=== PATIENT | female | born 1950 | race Caucasian/White ===

== ENCOUNTER 2016-12-24 01:26 | Inpatient (IN) | payer MEDICARE, BC ==
[~2016-12-24] VITALS: Ht 157.5 cm; Wt 53.1 kg
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
[2016-12-24] MEDS ORDERED: TEMAZEPAM 7.5 MG CAPSULE PO PRN (02:00)
[2016-12-24] MEDS ORDERED: MAG HYDROX/AL HYDROX/SIMETH 30 ML UDC PO PRN (02:00)
[2016-12-24] MEDS ORDERED: MAGNESIUM HYDROXIDE 30 ML UDC PO PRN (02:00)
[2016-12-24 02:16] VITALS: BP 132/70
[2016-12-24] MEDS ORDERED: FAMO40TA7 (02:35)
[2016-12-24] MEDS ORDERED: LEVO5TAB13 (02:35)
[2016-12-24] MEDS ORDERED: LANS30CA56 (02:35)
[2016-12-24] MEDS ORDERED: MONT10TA22 (02:35)
[2016-12-24] MEDS ORDERED: PENT100C9 (02:35)
[2016-12-24] MEDS ORDERED: CARB200T (02:35)
[2016-12-24] MEDS ORDERED: METH4TAB16 (02:35)
[2016-12-24] MEDS ORDERED: RALO60TA14 (02:35)
[2016-12-24] MEDS ORDERED: ESZO3TAB10 (02:35)
[2016-12-24] MEDS ORDERED: ESCI20TA (02:35)
[2016-12-24] MEDS ORDERED: CARI350T27 (02:35)
[2016-12-24] MEDS ORDERED: METH5TAB16 (02:35)
[2016-12-24] MEDS ORDERED: HYDROXYZINE (02:35)
[2016-12-24] MEDS ORDERED: CALC3.8S (02:35)
[2016-12-24] MEDS ORDERED: [UNRECOGNIZED DRUG - OTHER] (02:35)
[2016-12-24] MEDS ORDERED: CLON2TAB4 (02:35)
[2016-12-24] MEDS ORDERED: GUAN1TAB (02:35)
[2016-12-24] MEDS ORDERED: DIAZ10TA4 (02:35)
[2016-12-24] MEDS ORDERED: GABA-534 (02:35)
[2016-12-24] MEDS ORDERED: BACL10TA (02:38)
[2016-12-24] MEDS ORDERED: CLON0.1T (02:38)
[2016-12-24] MEDS ORDERED: GABA400C (02:38)
[2016-12-24] MEDS ORDERED: FAMO40TA70 (02:38)
[2016-12-24] MEDS ORDERED: OXYC-164 (02:38)
[2016-12-24] MEDS ORDERED: METF500T4 (02:38)
[2016-12-24] MEDS ORDERED: CYCL30DR (02:38)
[2016-12-24] MEDS ORDERED: PSYL0.4C PO (02:40)
[2016-12-24] MEDS ORDERED: CALC-10 PO (02:50)
[2016-12-24] MEDS ORDERED: CYCL30DR EACHEYE (02:50)
[2016-12-24] MEDS ORDERED: BUTA1TAB52 PO (02:50)
[2016-12-24 02:52] VITALS: BP 132/70
--- NOTE | 2016-12-24 03:00 | NUR ---
GPS RN NOTE: PATIENT ASLEEP, ARAUSABLE TO VERBAL AND TACTILE STIMULI, NO SOB, NO ACUTE DISTRESS, BREATHING EVEN AND UNLABORED, NO S/S OF PAIN AND DISCOMFORT, WILL CONTINUE TO MONITOR [id number] FOR SAFETY
[2016-12-24] MEDS ORDERED: OXYC-128 (03:31)
--- NOTE | 2016-12-24 06:24 | NUR ---
GPS RN NOTE: PATIENT REFUSED LAB DRAW, EXPLAINED THE RISK AND BENEFITS BUT PATIENT STILL REFUSED. WILL ENDORSE TO THE NEXT SHIFT
[2016-12-24] MEDS ORDERED: ACETAMINOPHEN 325 MG TABLET ONE (06:45)
[2016-12-24] MEDS ORDERED: clonazePAM 0.5 MG TABLET ONE (06:46)
[2016-12-24] MEDS: ACETAMINOPHEN 325 MG TABLET PO PRN ×2 (06:50→18:49)
[2016-12-24] MEDS: clonazePAM 0.5 MG TABLET PO PRN ×2 (06:50→13:16)
[2016-12-24 08:00] VITALS: BP 117/67
--- NOTE | 2016-12-24 13:20 | NUR ---
PACKAGE CRIMPER-NOTES PATIENT REQUESTING KLONOPIN FOR HER ANXIETY. KLONOPIN 0.5 MG P.O GIVEN PRN ORDER. WILL CONT. MONITORING FOR SAFETY .
[2016-12-24 15:59] VITALS: BP 125/74
[2016-12-24] MEDS ORDERED: CLONIDINE HCL 0.1 MG TABLET PO PRN (16:00)
[2016-12-24] MEDS: CARBAMAZEPINE 200 MG TABLET PO SCH (16:17)
[2016-12-24] MEDS: BACLOFEN (10 MG) 10 MG TABLET PO SCH (16:17)
[2016-12-24] MEDS: ESCITALOPRAM OXALATE (10 MG) 10 MG TABLET PO SCH (16:17)
[2016-12-24] MEDS ORDERED: methylPREDNISolone (4MG) 4 MG TABLET (DAY #1) PO ONE (16:30)
[2016-12-24] MEDS: GABAPENTIN 300 MG CAPSULE PO SCH (16:42)
[2016-12-24] MEDS ORDERED: DIAZEPAM 5 MG TABLET PO ONE (17:00)
[2016-12-24] MEDS ORDERED: methylPREDNISolone (4MG) 4 MG TABLET (DAY #1, BEFORE DINNER) PO ONE (17:30)
--- NOTE | 2016-12-24 18:52 | NUR ---
TYPING BOOKKEEPER-NOTES PATIENT COMPLAINED OF HEADACHE AND REQUESTING FOR PAIN MEDICATION. TYLENOL 650MG P.O GIVEN PRN ORDER. WILL CONT. MONITORING FOR SAFETY.
[2016-12-24 19:46] VITALS: BP 145/71
[2016-12-24 19:47] VITALS: BP 145/71
[2016-12-24] MEDS: FAMOTIDINE (20 MG) 20 MG TABLET PO SCH (20:41)
[2016-12-24] MEDS ORDERED: methylPREDNISolone (4MG) 4 MG TABLET (DAY #1, HS) PO ONE (22:00)
[2016-12-24] MEDS: TEMAZEPAM 7.5 MG CAPSULE PO PRN (22:08)
[2016-12-25] MEDS: ACETAMINOPHEN 325 MG TABLET PO PRN ×2 (00:35→07:14)
[2016-12-25] MEDS: clonazePAM 0.5 MG TABLET PO PRN ×3 (02:51→13:06)
[2016-12-25] MEDS ORDERED: methylPREDNISolone (4MG) 4 MG TABLET (DAY#2 ACB) PO ONE (07:30)
[2016-12-25 08:00] VITALS: BP 114/64
[2016-12-25] MEDS ORDERED: methylPREDNISolone DOSPAK(4MG) 1 PACK TAB.DS.PK PO SCH (09:00)
[2016-12-25] MEDS: GABAPENTIN 300 MG CAPSULE PO SCH ×3 (09:21→21:10)
[2016-12-25] MEDS: MONTELUKAST SODIUM (10MG) 10 MG TABLET PO SCH (09:21)
[2016-12-25] MEDS: ESCITALOPRAM OXALATE (10 MG) 10 MG TABLET PO SCH (09:21)
[2016-12-25] MEDS: CARBAMAZEPINE 200 MG TABLET PO SCH ×2 (09:22→17:29)
[2016-12-25] MEDS: FAMOTIDINE (20 MG) 20 MG TABLET PO SCH ×2 (09:22→21:03)
[2016-12-25] MEDS: BACLOFEN (10 MG) 10 MG TABLET PO SCH ×3 (09:22→17:29)
[2016-12-25] MEDS: CALCITONIN,SALMON,SYNTHETIC 3.7 ML SPRAY.PUMP NS SCH (09:24)
[2016-12-25] MEDS ORDERED: methylPREDNISolone (4MG) 4 MG TABLET (DAY#2,PC LUNCH) PO ONE (12:30)
--- NOTE | 2016-12-25 12:40 | NUR ---
Initial discharge plan: Per patient she lives alone in her condo in [place] ([address] [place] [address] / ). She would like to return home when ready for discharge. SARAH to communicate with the patient's brother Steve regarding most appropriate discharge plan. SW to help form a safe and proper discharge. Addendum: 12/25/16 at 1359 by CHERY SMITH SW applications intern attempted to contact the patients brother Steve ([phone]) however his Lizbeth answered the phone. SW applications intern informed her that she wanted to touch bases in term of the discharge plan for her. She stated that she will relay the message to her and social services aide applications intern provided assigned social workers name and number (Rachael [phone]). Assigned social services aide to follow up. Addendum: 12/25/16 at 1352 by CHERY SMITH stock worker will provide substance abuse referrals prior to discharge and will arrange transportation if necessary.
--- NOTE | 2016-12-25 15:09 | NUR ---
RN-CO: DR MURO NOTIFIED UPON PT REQUEST OF URINALYSIS. SAID YES.
--- NOTE | 2016-12-25 15:20 | NUR ---
RN-CO: URINALYSIS WAS ORDERED BY DR MURO, NOTED AND CARRIED OUT.
[2016-12-25 16:00] VITALS: BP 110/83
[2016-12-25 17:11] LABS: APPEARANCE,URINE SL CLOUDY (CLEAR); BILIRUBIN,URINE NEGATIVE (NEGATIVE); BLOOD, URINE TRACE-INTA Ery/uL (NEGATIVE); COLOR,URINE YELLOW (YELLOW); KETONES,URINE NEGATIVE (NEGATIVE); LEUKOCYTE ESTERASE ,URINE TRACE (NEGATIVE); NITRITE, URINE NEGATIVE (NEGATIVE); PROTEIN,URINE NEGATIVE (NEGATIVE); UGLUCOSE NEGATIVE (NEGATIVE); UROBILINOGEN,URINE 0.2 EU/dL (0.2)
[2016-12-25] MEDS: DIAZEPAM 5 MG TABLET PO PRN (17:29)
[2016-12-25] MEDS ORDERED: methylPREDNISolone (4MG) 4 MG TABLET (DAY#2, PC DINNER) PO ONE (17:30)
[2016-12-25 17:51] LABS: BACTERIA,URINE Few /HPF (None Seen); RBC,URINE 0-2 /HPF (0-2); SQUAMOUS EPITHELIAL CELL,UR Few /HPF (None Seen)
[2016-12-25 17:52] LABS: CALCIUM OXALATE CRYSTALS,UR Few /HPF (None Seen)
[2016-12-25 19:42] VITALS: BP 113/73
[2016-12-25] MEDS ORDERED: methylPREDNISolone (4MG) 4 MG TABLET (DAY#2, HS) PO ONE (21:00)
[2016-12-25] MEDS: TEMAZEPAM 7.5 MG CAPSULE PO PRN (22:10)
[2016-12-25] MEDS ORDERED: THIO200T PO (22:56)
[2016-12-25] MEDS ORDERED: VITA1TAB56 PO (22:56)
[2016-12-25] MEDS ORDERED: PROP20TA22 GT (22:56)
[2016-12-25] MEDS ORDERED: POLY1530 PO (22:56)
[2016-12-25] MEDS ORDERED: ESZO3TAB10 PO (22:56)
[2016-12-25] MEDS ORDERED: DOCU-25 PO (22:56)
[2016-12-25] MEDS ORDERED: CELE200C PO (23:55)
[2016-12-25] MEDS ORDERED: BUTA1CAP46 PO (23:59)
[2016-12-26] MEDS ORDERED: LACT1CAP71 PO (00:04)
[2016-12-26] MEDS ORDERED: POLY17PO4 PO (00:04)
[2016-12-26] MEDS ORDERED: ARGI500C2 PO (00:04)
[2016-12-26] MEDS ORDERED: CA C1TAB74 PO (00:21)
[2016-12-26] MEDS ORDERED: UBID100C13 PO (00:21)
[2016-12-26] MEDS ORDERED: FOLI-65 PO (00:21)
[2016-12-26] MEDS ORDERED: ALOE1CAP PO (00:21)
[2016-12-26] MEDS ORDERED: HERB1CAP2 PO (00:21)
[2016-12-26] MEDS ORDERED: methylPREDNISolone (4MG) 4 MG TABLET (DAY#3,ACB) PO ONE (07:30)
[2016-12-26 08:00] VITALS: BP 110/63
[2016-12-26] MEDS: MONTELUKAST SODIUM (10MG) 10 MG TABLET PO SCH (08:34)
[2016-12-26] MEDS: FAMOTIDINE (20 MG) 20 MG TABLET PO SCH ×2 (08:34→21:31)
[2016-12-26] MEDS: CARBAMAZEPINE 200 MG TABLET PO SCH ×2 (08:35→16:42)
[2016-12-26] MEDS: DIAZEPAM 5 MG TABLET PO PRN ×2 (08:35→22:45)
[2016-12-26] MEDS: ESCITALOPRAM OXALATE (10 MG) 10 MG TABLET PO SCH (08:35)
[2016-12-26] MEDS: BACLOFEN (10 MG) 10 MG TABLET PO SCH ×3 (08:35→16:42)
[2016-12-26] MEDS: CALCITONIN,SALMON,SYNTHETIC 3.7 ML SPRAY.PUMP NS SCH (08:37)
[2016-12-26] MEDS ORDERED: methylPREDNISolone (4MG) 4 MG TABLET (DAY#3,PC LUNCH) PO ONE (12:30)
--- NOTE | 2016-12-26 13:36 | NUR ---
RN NOTES INFORMED DR. SIM MURO RE: UPDATED HOME MED RECON THAT NEEDS TO BE REVIEWED, AND PATIENT'S CAREGIVER BROUGHT MEDICATION FROM HOME PRESCRIBED BY AN OUTSIDE MD, PER MD, CONTINUE MEDICATION. ORDER NOTED AND CARRIED OUT. PATIENT MADE AWARE. PATIENT SEEN AND EXAMINED BY DR. VALLADARES.
[2016-12-26] MEDS ORDERED: [UNRECOGNIZED DRUG - OTHER] EACHEYE PRN (14:00)
[2016-12-26] MEDS ORDERED: DIAZEPAM 10 MG TABLET PO PRN (15:00)
[2016-12-26] MEDS ORDERED: DIAZEPAM 5 MG TABLET PO PRN (15:30)
--- NOTE | 2016-12-26 16:06 | NUR ---
formula room worker spoke to patient regarding her discharge plan. Patient stated that as of today she has a 24 hour caregiver Micki Cooley ([phone]) and would like to return home upon discharge. Per patient, Micki would be able to pick her up when she is ready for discharge. formula room worker will confirm with Micki Cooley.
[2016-12-26 16:09] VITALS: BP 143/78
--- NOTE | 2016-12-26 16:09 | NUR ---
buffing line set up worker spoke to patient's caregiver Micki Cooley ([phone]) who confirmed that she would now be patient's 24 hour caregiver and would be available to pick-up patient upon discharge.
--- NOTE | 2016-12-26 16:11 | NUR ---
target worker spoke to patient's brother Jerson Sanches ([phone]) regarding patient's discharge plan. Patient's brother was agreeable with the discharge plan and was satisfied with the information provided by the elementary school social worker. target worker will follow-up.
[2016-12-26] MEDS: [UNRECOGNIZED DRUG - OTHER] EACHEYE PRN (16:46)
--- NOTE | 2016-12-26 16:51 | NUR ---
RN NOTES PATIENT PREFERS TO TAKE RESTASIS AT BEDTIME, TIME OF ADMINISTRATION CHANGED TO Q12H, 9AM TO 9PM.
[2016-12-26] MEDS ORDERED: CYCLOSPORINE 0.05% EACHEYE SCH ×2 (17:00)
[2016-12-26] MEDS ORDERED: methylPREDNISolone (4MG) 4 MG TABLET (DAY#3,PC DINNER) PO ONE (17:30)
[2016-12-26 20:00] VITALS: BP 113/65
[2016-12-26] MEDS: RESTASIS EACHEYE SCH (21:29)
[2016-12-26] MEDS: CELECOXIB 100 MG CAPSULE PO SCH (21:29)
[2016-12-26] MEDS: PROPRANOLOL HCL 10 MG TABLET PO SCH (21:30)
[2016-12-26] MEDS: GABAPENTIN 300 MG CAPSULE PO SCH (21:30)
[2016-12-26] MEDS: TEMAZEPAM 7.5 MG CAPSULE PO PRN (21:33)
[2016-12-26] MEDS ORDERED: methylPREDNISolone (4MG) 4 MG TABLET (DAY#3, HS) PO ONE (22:00)
[2016-12-27] MEDS ORDERED: methylPREDNISolone (4MG) 4 MG TABLET (DAY #4, ACB) PO ONE (07:30)
[2016-12-27 08:12] VITALS: BP 121/65
[2016-12-27] MEDS: ESCITALOPRAM OXALATE (10 MG) 10 MG TABLET PO SCH (08:36)
[2016-12-27] MEDS: FAMOTIDINE (20 MG) 20 MG TABLET PO SCH (08:36)
[2016-12-27] MEDS: CARBAMAZEPINE 200 MG TABLET PO SCH (08:36)
[2016-12-27] MEDS: CELECOXIB 100 MG CAPSULE PO SCH (08:37)
[2016-12-27] MEDS: MONTELUKAST SODIUM (10MG) 10 MG TABLET PO SCH (08:37)
[2016-12-27] MEDS: BACLOFEN (10 MG) 10 MG TABLET PO SCH ×2 (08:37→12:44)
[2016-12-27 08:38] VITALS: BP 121/65
[2016-12-27] MEDS: PROPRANOLOL HCL 10 MG TABLET PO SCH (08:38)
[2016-12-27] MEDS: CALCITONIN,SALMON,SYNTHETIC 3.7 ML SPRAY.PUMP NS SCH (08:39)
[2016-12-27] MEDS: RESTASIS EACHEYE SCH (08:40)
[2016-12-27] MEDS: [UNRECOGNIZED DRUG - OTHER] EACHEYE PRN (08:41)
[2016-12-27] MEDS ORDERED: DULOXETINE HCL 30 MG CAPSULE.DR PO SCH (10:30)
[2016-12-27] MEDS: DIAZEPAM 5 MG TABLET PO PRN (10:35)
[2016-12-27] MEDS ORDERED: methylPREDNISolone (4MG) 4 MG TABLET (DAY #4, PC LUNCH) PO ONE (12:30)
--- NOTE | 2016-12-27 13:35 | NUR ---
DISCHARGE NOTES: PER DR. COLEMAN'S ORDER, PT DISCHARGED HOME AT [address] [place], [address]. WITH 24 HR CAREGIVER. PATIENT IS A/OX4, PT'S CONDITION IS STABLE FOR DISCHARGE, VS STABLE. PATIENT DENIES ANY SUICIDAL OR HOMICIDAL IDEATION, DENIES AVH. ALL BELONGINGS RETURNED TO THE PATIENT, PROPERTY MANAGEMENT FORM AND EDUCATIONAL EXIT CARE SIGNED, COPIES PROVIDED TO THE PATIENT ALONG WITH PRESCRIPTIONS FOR PSYCHIATRIC MEDICATION. PATIENT REFUSED PRESCRIPTIONS FOR NON-PSYCHIATRIC MEDS, STATING SHE HAS A FULL SUPPLY AT HOME AND WILL F/U WITH HER PRIMARY PHYSICIAN AND PSYCHIATRIST AFTER THE DISCHARGE. PATIENT LEFT THE UNIT ACCOMPANIED WITH STAFF MEMBER AND PRIVATE CAREGIVER ASHLEY, LEFT VIA PRIVATE CAR.
--- NOTE | 2016-12-27 14:33 | NUR ---
Discharge Note: Patient was discharged home [address] [place] [address] / ). Patient's 24 hour caregiver Micki Cooley ([phone]) was notified and picked her up via private vehicle. Patient was agreeable with the discharge plan. Patient's mood and affect were calm upon discharge. Patient denied suicidal and homicidal ideations. Patient will follow-up with her psychiatrist Dr. Toño Whalen ([phone]) [address] [place] [address] [address] [place] [address] on 01/01/17 at 2:00PM in which she will discuss her medication regimen. Facilitated info to IDT team who are in agreement with discharge arrangement. The multidisciplinary exitcare form was done, printed, signed, and given to the patient.
--- NOTE | 2016-12-27 14:50 | NUR ---
rice farmworker attempted to contact patient's brother Jerson Sanches ([phone]) to inform him that patient was going to be discharged. however, he was unavailable. rice farmworker was unable to leave a message as his voicemail box was full.
[2016-12-27] MEDS ORDERED: methylPREDNISolone (4MG) 4 MG TABLET (DAY#4 HS) PO ONE (22:00)
[2016-12-28] MEDS ORDERED: methylPREDNISolone (4MG) 4 MG TABLET (DAY#5, ACB) PO ONE (07:30)
[2016-12-28] MEDS ORDERED: methylPREDNISolone (4MG) 4 MG TABLET (DAY#5,HS) PO ONE (22:00)
[2016-12-29] MEDS ORDERED: methylPREDNISolone (4MG) 4 MG TABLET (DAY#6,ACB) PO ONE (07:30)
== END 2016-12-27 13:35 | disposition home or self-care (01) | DRG 885 ==
LOC: GPS 01:26
PROVIDERS: ADMIT Psychiatry & Neurology Psychiatry; ATTEND Psychiatry & Neurology Psychiatry
DX: F33.2 Major depressive disorder, recurrent severe without psychotic features (principal); C15.9 Malignant neoplasm of esophagus, unspecified; N30.10 Interstitial cystitis (chronic) without hematuria; K21.9 Gastro-esophageal reflux disease without esophagitis; G90.50 Complex regional pain syndrome I, unspecified; R45.851 Suicidal ideations; E78.5 Hyperlipidemia, unspecified; Z73.6 Limitation of activities due to disability; Z79.899 Other long term (current) drug therapy; F41.9 Anxiety disorder, unspecified
CPT/HCPCS: 81000-TC; 87081-TC; 87086-TC; J7509